=== PATIENT | male | born 1985 | race Asian ===

== ENCOUNTER → 2017-08-16 | Outpatient (CLI) | payer BC ==
[2017-08-16 13:26] LABS: BASOPHILS % 1.5 % (0.0-2.0); EOSINOPHILS % 1.4 % (0.0-5.0); HEMOGLOBIN. 15.6 g/dL (14.0-18.0); LYMPHOCYTES % 21.9 % (20.0-50.0); MEAN CORPUSCULAR HEMOGLOBIN 20.4 pg (28.0-32.0); MEAN CORPUSCULAR VOLUME 66.9 fL (80.0-94.0); MEAN PLATELET VOLUME 8.7 fl (7.4-10.4); NEUTROPHILS % 70.2 % (40.0-76.0); PLATELET 332 x1000/uL (130-400); RED BLOOD CELL COUNT 7.63 mill/uL (4.7-6.1)
[2017-08-16 13:43] LABS: CHLORIDE 104 mEq/L (98-107)
[2017-08-16 14:16] LABS: VITAMIN B12 SERUM 509 pg/mL (211-911)
[2017-08-16 20:23] LABS: PLATELET ESTIMATE NORMAL
== END | disposition home or self-care (01) ==
LOC: LAB 11:56
DX: Z01.818 Encounter for other preprocedural examination (principal); K21.0 Gastro-esophageal reflux disease with esophagitis
CPT/HCPCS: 36415; 71046; 80053; 82607; 85025; 93005

== ENCOUNTER → 2017-08-18 | Outpatient (CLI) | payer BC ==
[~2017-08-18] MED LIST: BARIUM SULFATE 176 GM SUSP.RECON ONE; EZ-HD SUSPENSION(BARIUM SULFATE 340GM) PO ONE
== END | disposition home or self-care (01) ==
LOC: RAD 09:21
DX: K44.9 Diaphragmatic hernia without obstruction or gangrene (principal); K21.9 Gastro-esophageal reflux disease without esophagitis
CPT/HCPCS: 74246

== ENCOUNTER → 2018-09-19 | Outpatient (CLI) | payer BC ==
[2018-09-19 10:14] LABS: BASOPHILS % 0.7 % (0.0-2.0); EOSINOPHILS % 3.1 % (0.0-5.0); HEMATOCRIT. 47.6 % (42.0-52.0); HEMOGLOBIN. 14.9 g/dL (14.0-18.0); MEAN CORPUSCULAR HEMOGLOBIN 20.8 pg (28.0-32.0); MEAN CORPUSCULAR VOLUME 66.5 fL (80.0-94.0); MEAN PLATELET VOLUME 8.8 fl (7.4-10.4); MONOCYTES % 5.2 % (2.0-8.0); PLATELET 315 x1000/uL (130-400); RED BLOOD CELL COUNT 7.16 mill/uL (4.7-6.1); RED CELL DISTRIBUTION WIDTH 15.5 % (11.6-14.6)
[2018-09-19 10:30] LABS: PARTIAL THROMBOPLASTIN TIME 31.5 sec (23.4-31.0)
[2018-09-19 10:31] LABS: CHLORIDE 106 mEq/L (98-107)
[2018-09-19 10:36] LABS: GAMMA GLUTAMYL TRANSPEPTIDASE 65 IU/L (11-50)
[2018-09-19 10:40] LABS: LDL CHOLESTEROL 51 mg/dL (5-100)
[2018-09-19 10:41] LABS: HDL CHOLESTEROL 50 mg/dL (40-59)
[2018-09-19 10:43] LABS: T4 FREE 1.12 ng/dL (0.76-1.46); TOTAL IRON BINDING CAPACITY 360 ug/dL (250-450)
[2018-09-19 11:52] LABS: FOLIC ACID (FOLATE) SERUM > 20.00 ng/mL (>5.38)
[2018-09-19 12:42] LABS: PLATELET ESTIMATE NORMAL
[2018-09-19 17:11] LABS: FERRITIN 40 ng/mL (22-322)
== END | disposition home or self-care (01) ==
LOC: LAB 09:27
PROVIDERS: ATTEND Surgery
DX: E78.00 Pure hypercholesterolemia, unspecified (principal); R53.81 Other malaise
CPT/HCPCS: 36415; 80061; 82306; 82728; 82746; 82951; 82977; 83036; 83540; 83550; 83970; 84425; 84439; 84443; 84550

== ENCOUNTER → 2019-05-04 | Outpatient (CLI) | payer BC ==
[2019-05-04 09:18] LABS: BASOPHILS % 1.5 % (0.0-2.0); EOSINOPHILS % 1.6 % (0.0-5.0); HEMATOCRIT. 46.9 % (42.0-52.0); HEMOGLOBIN. 14.4 g/dL (14.0-18.0); LYMPHOCYTES % 18.3 % (20.0-50.0); MEAN CORPUSCULAR HEMOGLOBIN 20.4 pg (28.0-32.0); MEAN CORPUSCULAR VOLUME 66.3 fL (80.0-94.0); MEAN PLATELET VOLUME 8.8 fl (7.4-10.4); MONOCYTES % 4.5 % (2.0-8.0); NEUTROPHILS % 74.1 % (40.0-76.0); PLATELET 305 x1000/uL (130-400); RED BLOOD CELL COUNT 7.08 mill/uL (4.7-6.1); RED CELL DISTRIBUTION WIDTH 16.1 % (11.6-14.6)
[2019-05-04 09:25] LABS: PARTIAL THROMBOPLASTIN TIME 32.2 sec (23.4-31.0); PROTHROMBIN TIME 10.2 sec (9.6-11.0)
[2019-05-04 09:27] LABS: CHLORIDE 107 mEq/L (98-107)
[2019-05-04 09:31] LABS: GAMMA GLUTAMYL TRANSPEPTIDASE 74 IU/L (11-50)
[2019-05-04 09:32] LABS: LDL CHOLESTEROL 47 mg/dL (5-100)
[2019-05-04 09:33] LABS: TOTAL IRON BINDING CAPACITY 359 ug/dL (250-450)
[2019-05-04 09:34] LABS: HDL CHOLESTEROL 52 mg/dL (40-59)
[2019-05-04 09:36] LABS: T4 FREE 1.14 ng/dL (0.76-1.46)
[2019-05-04 12:42] LABS: FERRITIN 29 ng/mL (22-322)
[2019-05-04 12:54] LABS: FOLIC ACID (FOLATE) SERUM > 20.00 ng/mL (>5.38)
[2019-05-04 13:11] LABS: PLATELET ESTIMATE NORMAL
[2019-05-08 07:09] LABS: VITAMIN B1 THIAMINE WHOLE BLD 165.2 nmol/L (66.5-200.0)
== END | disposition home or self-care (01) ==
LOC: LAB 08:40
DX: E78.00 Pure hypercholesterolemia, unspecified (principal); I10 Essential (primary) hypertension; K21.9 Gastro-esophageal reflux disease without esophagitis; R53.81 Other malaise
CPT/HCPCS: 36415; 80061; 82306; 82728; 82746; 82977; 83036; 83540; 83550; 83970; 84425; 84439; 84443; 84550

== ENCOUNTER → 2019-07-25 | Outpatient (CLI) | payer BC | END | disposition home or self-care (01) | LOC: LAB 07:45 | PROVIDERS: ATTEND Surgery | DX: I10 Essential (primary) hypertension (principal); E11.9 Type 2 diabetes mellitus without complications; E78.1 Pure hyperglyceridemia; E61.0 Copper deficiency; E61.1 Iron deficiency; E55.9 Vitamin D deficiency, unspecified; K21.9 Gastro-esophageal reflux disease without esophagitis; K91.1 Postgastric surgery syndromes; R53.83 Other fatigue; R53.81 Other malaise | CPT/HCPCS: 82306; 83970 ==

== ENCOUNTER 2019-10-24 06:57 | Emergency (ER) | payer BC ==
[~2019-10-24] VITALS: Ht 175.3 cm; Wt 191.0 kg
[2019-10-24 07:46] LABS: BASOPHILS % 1.2 % (0.0-2.0); EOSINOPHILS % 3.4 % (0.0-5.0); HEMATOCRIT. 49.3 % (42.0-52.0); MEAN CORPUSCULAR HEMOGLOBIN 20.3 pg (28.0-32.0); MEAN CORPUSCULAR VOLUME 66.7 fL (80.0-94.0); MEAN PLATELET VOLUME 8.7 fl (7.4-10.4); MONOCYTES % 5.5 % (2.0-8.0); NEUTROPHILS % 62.9 % (40.0-76.0); PLATELET 302 x1000/uL (130-400); RED BLOOD CELL COUNT 7.39 mill/uL (4.7-6.1); RED CELL DISTRIBUTION WIDTH 15.7 % (11.6-14.6)
[2019-10-24 07:54] LABS: CHLORIDE 105 mEq/L (98-107)
[2019-10-24 08:10] LABS: PLATELET ESTIMATE NORMAL
[2019-10-24 08:17] LABS: BG BASE EXCESS -0.6 mmol/L (-2.0-2.0); BG CARBOXYHEMOGLOBIN 0.9 % (0.5-1.5); BG FRACTION INSPIRED OXYGEN 21; BG METHEMOGLOBIN 0.3 % (0.0-1.5); BG OXYHEMOGLOBIN 95.8 % (94.0-97.0); BG PCO2 39.5 mmHg (35.0-45.0); BG PH 7.401 (7.350-7.450); BG PO2 88.4 mmHg (75.0-100.0); BG SAMPLE SITE RIGHT RADIAL; BG TOTAL HEMOGLOBIN 15.3 g/dL (12.0-18.0); BG VENT MODE ROOM AIR
[2019-10-24 09:08] VITALS: BP 141/67
== END 2019-10-24 09:13 | disposition home or self-care (01) ==
LOC: ER 06:57
DX: B34.9 Viral infection, unspecified (principal); J45.909 Unspecified asthma, uncomplicated; Z20.828 Contact with and (suspected) exposure to other viral communicable diseases; Z98.890 Other specified postprocedural states
CPT/HCPCS: 36415; 36600; 71045; 80053; 82375; 82805; 83880; 84484; 85025; 85379; 87635; 87804; 93005; 99285

== ENCOUNTER → 2020-07-30 | Outpatient (CLI) | payer BC ==
[2020-07-30 10:57] LABS: BASOPHILS % 1.2 % (0.0-2.0); EOSINOPHILS % 2.2 % (0.0-5.0); HEMOGLOBIN. 14.5 g/dL (14.0-18.0); LYMPHOCYTES % 24.6 % (20.0-50.0); MEAN CORPUSCULAR HEMOGLOBIN 20.2 pg (28.0-32.0); MEAN CORPUSCULAR VOLUME 65.4 fL (80.0-94.0); MEAN PLATELET VOLUME 8.7 fl (7.4-10.4); MONOCYTES % 4.1 % (2.0-8.0); NEUTROPHILS % 67.9 % (40.0-76.0); PLATELET 315 x1000/uL (130-400); RED BLOOD CELL COUNT 7.18 mill/uL (4.7-6.1); RED CELL DISTRIBUTION WIDTH 14.9 % (11.6-14.6)
[2020-07-30 11:05] LABS: CHLORIDE 107 mEq/L (98-107)
[2020-07-30 11:08] LABS: PARTIAL THROMBOPLASTIN TIME 30.3 sec (23.4-31.0); PROTHROMBIN TIME 10.2 sec (9.6-11.0)
[2020-07-30 11:13] LABS: LDL CHOLESTEROL 48 mg/dL (5-100)
[2020-07-30 11:14] LABS: GAMMA GLUTAMYL TRANSPEPTIDASE 112 IU/L (11-50); HDL CHOLESTEROL 41 mg/dL (40-59); TOTAL IRON BINDING CAPACITY 358 ug/dL (250-450)
[2020-07-30 11:17] LABS: T4 FREE 1.13 ng/dL (0.76-1.46)
[2020-07-30 11:52] LABS: FOLIC ACID (FOLATE) SERUM >20 ng/mL ng/mL (>5.38)
[2020-07-30 12:11] LABS: FERRITIN 39 ng/mL (22-322)
[2020-07-30 14:08] LABS: PLATELET ESTIMATE NORMAL
== END | disposition home or self-care (01) ==
LOC: LAB 10:11
PROVIDERS: ATTEND Surgery
DX: E78.1 Pure hyperglyceridemia (principal); E78.00 Pure hypercholesterolemia, unspecified; I10 Essential (primary) hypertension; E11.9 Type 2 diabetes mellitus without complications; K21.9 Gastro-esophageal reflux disease without esophagitis; R53.83 Other fatigue; E55.9 Vitamin D deficiency, unspecified
CPT/HCPCS: 36415; 80053; 80061; 82306; 82728; 82746; 82977; 83036; 83540; 83550; 83970; 84425; 84439; 84443; 84550; 85025; 87338

== ENCOUNTER 2021-02-05 04:46 | Inpatient (IN) | payer BC ==
[~2021-02-05] VITALS: Ht 172.7 cm; Wt 210.9 kg
[2021-02-05] MEDS ORDERED: SODIUM CHLORIDE 0.9% 1,000 ML IV ONE (05:15)
[2021-02-05 05:42] LABS: BASOPHILS % 0.6 % (0.0-2.0); EOSINOPHILS % 0.6 % (0.0-5.0); HEMOGLOBIN. 15.1 g/dL (14.0-18.0); LYMPHOCYTES % 13.4 % (20.0-50.0); MEAN CORPUSCULAR HEMOGLOBIN 21.1 pg (28.0-32.0); MEAN CORPUSCULAR VOLUME 65.7 fL (80.0-94.0); MEAN PLATELET VOLUME 9.1 fl (7.4-10.4); MONOCYTES % 5.6 % (2.0-8.0); NEUTROPHILS % 79.8 % (40.0-76.0); PLATELET 232 x1000/uL (130-400); RED BLOOD CELL COUNT 7.16 mill/uL (4.7-6.1); RED CELL DISTRIBUTION WIDTH 14.7 % (11.6-14.6)
[2021-02-05 05:42] LABS: BG BASE EXCESS -2.7 mmol/L (-2.0-2.0); BG CARBOXYHEMOGLOBIN 0.7 % (0.5-1.5); BG DEOXYHEMOGLOBIN 4.6 % (0.0-5.0); BG FRACTION INSPIRED OXYGEN 21; BG HCO3 ACT 21.4 mmol/L (22.0-26.0); BG METHEMOGLOBIN 0.3 % (0.0-1.5); BG OXYGEN SATURATION 95.4 % (92.0-98.5); BG OXYHEMOGLOBIN 94.4 % (94.0-97.0); BG PCO2 35.5 mmHg (35.0-45.0); BG PH 7.399 (7.350-7.450); BG PO2 72.5 mmHg (75.0-100.0); BG SAMPLE SITE RIGHT RADIAL; BG TOTAL HEMOGLOBIN 15.4 g/dL (12.0-18.0); BG VENT MODE ROOM AIR
[2021-02-05 05:44] LABS: PLATELET ESTIMATE NORMAL
[2021-02-05 05:48] LABS: CHLORIDE 103 mEq/L (98-107)
[2021-02-05 05:54] LABS: C REACTIVE PROTEIN QUANT 8.4 mg/L (0.0-3.0)
[2021-02-05 05:57] LABS: CREATINE KINASE 242 IU/L (39-308)
[2021-02-05 05:58] LABS: D-DIMER 0.65 mg/L FEU (<0.50); PROTHROMBIN TIME 10.4 sec (9.6-11.0)
[2021-02-05] MEDS ORDERED: DEXAMETHASONE 4MG/ML 1ML VIAL IV ONE (08:00)
[2021-02-05] MEDS ORDERED: MVI, ADULT NO.1 10 ML, FOLIC ACID 1 MG, THIAMINE HCL 100 MG in SODIUM CHLORIDE 0.9% 1,0... IV NR (18:15)
[2021-02-05] MEDS ORDERED: ACETAMINOPHEN 325MG TABLET PO PRN ×2 (18:15)
[2021-02-05] MEDS ORDERED: ONDANSETRON HCL 4MG/2ML INJ IV PRN (18:15)
[2021-02-05] MEDS ORDERED: ALBUTEROL 6.7GM HFA INHALER ORI PRN (18:15)
[2021-02-05] MEDS ORDERED: DIPHENHYDRAMINE 50MG/ML VIAL IV PRN (18:15)
[2021-02-05] MEDS: LOPERAMIDE HCL 2MG CAPSULE PO PRN (19:12)
[2021-02-05] MEDS: ENOXAPARIN 40MG/0.4ML SYR SUBCUT SCH (19:12)
[2021-02-05] MEDS ORDERED: PHENOL/SODIUM PHENOLATE 1.4% SRPAY 177ML MM NR (19:30)
[2021-02-05] MEDS ORDERED: PHENOL/SODIUM PHENOLATE 1.4% SRPAY 177ML MM PRN (19:45)
[2021-02-05] MEDS: ALBUTEROL 6.7GM HFA INHALER ORI SCH (20:14)
[2021-02-05] MEDS: GABAPENTIN 300MG CAPSULE PO SCH (21:07)
[2021-02-05] MEDS: OMEPRAZOLE 20MG CAPSULE EXTENDED RELEASE PO SCH (21:08)
[2021-02-05] MEDS: SODIUM CHLORIDE 0.9% INJ 3ML FLUSH IVF SCH (22:03)
[2021-02-06] MEDS: ALBUTEROL 6.7GM HFA INHALER ORI SCH ×4 (02:19→23:07)
[2021-02-06] MEDS: HYDROCODONE/ACETAMINOPHEN 5/325MG TABLET PO PRN ×2 (02:35→09:46)
[2021-02-06] MEDS: SODIUM CHLORIDE 0.9% INJ 3ML FLUSH IVF SCH ×3 (06:13→21:53)
[2021-02-06] MEDS: OMEPRAZOLE 20MG CAPSULE EXTENDED RELEASE PO SCH (06:50)
[2021-02-06] MEDS ORDERED: ERGOCALCIFEROL 50000UNITS CAPSULE PO SCH (09:00)
[2021-02-06] MEDS: ENOXAPARIN 40MG/0.4ML SYR SUBCUT SCH ×2 (09:49→21:52)
[2021-02-06] MEDS: ALLOPURINOL 100 MG TABLET PO SCH (09:58)
[2021-02-06] MEDS: MULTIVITAMINS,THER W-MINERALS TABLET PO SCH (09:58)
[2021-02-06] MEDS ORDERED: NALOXONE HCL 0.4MG/ML VIAL IV PRN (13:45)
[2021-02-06 15:13] VITALS: BP_SYST 127; BP_SYST 165; BP_DIAS 67
[2021-02-06] MEDS ORDERED: MULT-1146 PO (16:04)
[2021-02-06] MEDS ORDERED: CHOL100053 PO (16:04)
[2021-02-06] MEDS ORDERED: GABA-532 PO (16:04)
[2021-02-06] MEDS ORDERED: ALBU6.7H15 INH (16:04)
[2021-02-06] MEDS ORDERED: ALLO100T PO (16:04)
[2021-02-06 16:16] VITALS: BP 147/70
[2021-02-06] MEDS ORDERED: BENZONATATE 100MG CAPSULE PO PRN (18:15)
[2021-02-06 20:00] VITALS: BP 171/77
[2021-02-06] MEDS ORDERED: POTASSIUM CHLORIDE 20MEQ TABLET SR PO NR (21:30)
[2021-02-06] MEDS: FAMOTIDINE 20MG TABLET PO SCH (21:52)
[2021-02-06] MEDS: GABAPENTIN 300MG CAPSULE PO SCH (21:52)
[2021-02-06] MEDS: FLUTICASONE PROPIONATE 50MCG/SPRAY BOTTLE BOTHNSTRLS SCH (21:53)
[2021-02-06] MEDS: PROMETHAZINE/DEXTROMETHORPHAN 6.25-15MG/5ML BOTTLE 120ML PO PRN (21:53)
[2021-02-06 22:00] VITALS: BP 118/51
[2021-02-07] MEDS: ZOLPIDEM TARTRATE 5MG TABLET PO PRN ×2 (00:06→21:58)
[2021-02-07] MEDS: ALBUTEROL 6.7GM HFA INHALER ORI SCH ×4 (02:00→21:36)
[2021-02-07 04:00] VITALS: BP 138/89
[2021-02-07] MEDS: SODIUM CHLORIDE 0.9% INJ 3ML FLUSH IVF SCH ×3 (05:43→21:58)
[2021-02-07 07:13] LABS: BASOPHILS % 0.7 % (0.0-2.0); HEMATOCRIT. 43.6 % (42.0-52.0); HEMOGLOBIN. 13.5 g/dL (14.0-18.0); LYMPHOCYTES % 26.8 % (20.0-50.0); MEAN CORPUSCULAR HEMOGLOBIN 20.7 pg (28.0-32.0); MEAN CORPUSCULAR VOLUME 66.9 fL (80.0-94.0); MEAN PLATELET VOLUME 8.9 fl (7.4-10.4); MONOCYTES % 8.7 % (2.0-8.0); NEUTROPHILS % 62.8 % (40.0-76.0); PLATELET 251 x1000/uL (130-400); RED BLOOD CELL COUNT 6.52 mill/uL (4.7-6.1); RED CELL DISTRIBUTION WIDTH 14.7 % (11.6-14.6)
[2021-02-07 07:26] LABS: CHLORIDE 104 mEq/L (98-107)
[2021-02-07 08:00] VITALS: BP 130/72
[2021-02-07] MEDS: MULTIVITAMINS,THER W-MINERALS TABLET PO SCH (08:27)
[2021-02-07] MEDS: ENOXAPARIN 40MG/0.4ML SYR SUBCUT SCH ×2 (08:27→21:35)
[2021-02-07] MEDS: FLUTICASONE PROPIONATE 50MCG/SPRAY BOTTLE BOTHNSTRLS SCH ×2 (08:27→21:36)
[2021-02-07] MEDS: FAMOTIDINE 20MG TABLET PO SCH ×2 (08:27→21:35)
[2021-02-07] MEDS: ALLOPURINOL 100 MG TABLET PO SCH (08:27)
[2021-02-07] MEDS: PROMETHAZINE/DEXTROMETHORPHAN 6.25-15MG/5ML BOTTLE 120ML PO PRN ×2 (11:40→17:42)
[2021-02-07 12:00] VITALS: BP 122/59
[2021-02-07] MEDS: DEXAMETHASONE 6MG TABLET PO SCH (13:52)
[2021-02-07] MEDS ORDERED: POTASSIUM CHLORIDE 20MEQ TABLET SR PO NR (15:30)
[2021-02-07 16:00] VITALS: BP 99/51
[2021-02-07 20:00] VITALS: BP 138/69
[2021-02-07] MEDS: GABAPENTIN 300MG CAPSULE PO SCH (21:35)
[2021-02-07] MEDS: LOPERAMIDE HCL 2MG CAPSULE PO PRN (21:40)
[2021-02-08] VITALS: BP 131/74
[2021-02-08] MEDS: ALBUTEROL 6.7GM HFA INHALER ORI SCH ×4 (02:00→22:04)
[2021-02-08 04:00] VITALS: BP 127/55
[2021-02-08] MEDS: SODIUM CHLORIDE 0.9% INJ 3ML FLUSH IVF SCH ×3 (06:00→22:04)
[2021-02-08 08:00] VITALS: BP 134/71
[2021-02-08] MEDS: FAMOTIDINE 20MG TABLET PO SCH ×2 (08:39→22:03)
[2021-02-08] MEDS: DEXAMETHASONE 6MG TABLET PO SCH (08:39)
[2021-02-08] MEDS: MULTIVITAMINS,THER W-MINERALS TABLET PO SCH (08:39)
[2021-02-08] MEDS: ALLOPURINOL 100 MG TABLET PO SCH (08:39)
[2021-02-08] MEDS: ENOXAPARIN 40MG/0.4ML SYR SUBCUT SCH ×2 (08:40→22:04)
[2021-02-08] MEDS: FLUTICASONE PROPIONATE 50MCG/SPRAY BOTTLE BOTHNSTRLS SCH ×2 (08:40→22:04)
[2021-02-08] MEDS: PROMETHAZINE/DEXTROMETHORPHAN 6.25-15MG/5ML BOTTLE 120ML PO PRN ×2 (08:41→15:14)
[2021-02-08 12:00] VITALS: BP 135/70
[2021-02-08 16:00] VITALS: BP 141/76
[2021-02-08] MEDS ORDERED: DEX6 MT (19:40)
[2021-02-08 20:00] VITALS: BP 129/66
[2021-02-08 21:00] LABS: BASOPHILS % 0.3 % (0.0-2.0); HEMATOCRIT. 43.8 % (42.0-52.0); LYMPHOCYTES % 12.5 % (20.0-50.0); MEAN CORPUSCULAR HEMOGLOBIN 20.9 pg (28.0-32.0); MEAN CORPUSCULAR VOLUME 65.4 fL (80.0-94.0); MEAN PLATELET VOLUME 9.5 fl (7.4-10.4); MONOCYTES % 5.6 % (2.0-8.0); NEUTROPHILS % 81.6 % (40.0-76.0); PLATELET 322 x1000/uL (130-400)
[2021-02-08 21:05] LABS: CHLORIDE 106 mEq/L (98-107)
[2021-02-08] MEDS ORDERED: AZIT500T3 MT (21:58)
[2021-02-08] MEDS: ZOLPIDEM TARTRATE 5MG TABLET PO PRN (22:03)
[2021-02-08] MEDS: LOPERAMIDE HCL 2MG CAPSULE PO PRN (22:03)
[2021-02-08] MEDS: GABAPENTIN 300MG CAPSULE PO SCH (22:03)
[2021-02-09] VITALS: BP 135/61
[2021-02-09] MEDS: ALBUTEROL 6.7GM HFA INHALER ORI SCH ×2 (02:00→08:38)
[2021-02-09 04:00] VITALS: BP 124/55
[2021-02-09] MEDS: SODIUM CHLORIDE 0.9% INJ 3ML FLUSH IVF SCH (05:51)
[2021-02-09 08:00] VITALS: BP 138/81
[2021-02-09 08:22] VITALS: BP 138/81
[2021-02-09] MEDS: FAMOTIDINE 20MG TABLET PO SCH (08:37)
[2021-02-09] MEDS: ALLOPURINOL 100 MG TABLET PO SCH (08:37)
[2021-02-09] MEDS: DEXAMETHASONE 6MG TABLET PO SCH (08:37)
[2021-02-09] MEDS: ENOXAPARIN 40MG/0.4ML SYR SUBCUT SCH (08:37)
[2021-02-09] MEDS: MULTIVITAMINS,THER W-MINERALS TABLET PO SCH (08:37)
[2021-02-09] MEDS: FLUTICASONE PROPIONATE 50MCG/SPRAY BOTTLE BOTHNSTRLS SCH (08:37)
== END 2021-02-09 09:30 | disposition home or self-care (01) | DRG 871 ==
LOC: ER 04:46 → MICUSO 07:46 → EDBEDREQ 07:58 → EDBEDREQSVC 07:58 → EDBEDREQTM 07:58 → 7WST 02-06 13:25
PROVIDERS: ADMIT Internal Medicine; ATTEND Internal Medicine
PROC: 5A09357 Assistance with Respiratory Ventilation, Less than 24 Consecutive Hours, Continuous Positive Airway Pressure (ICD-10-PCS; 2021-02-05)
PROC: 5A09457 Assistance with Respiratory Ventilation, 24-96 Consecutive Hours, Continuous Positive Airway Pressure (ICD-10-PCS; principal; 2021-02-06)
DX: A41.89 Other specified sepsis (principal); U07.1 COVID-19; J96.01 Acute respiratory failure with hypoxia; J12.82 Pneumonia due to coronavirus disease 2019; Z68.45 Body mass index [BMI] 70 or greater, adult; E66.01 Morbid (severe) obesity due to excess calories; J45.909 Unspecified asthma, uncomplicated; M10.9 Gout, unspecified; E86.0 Dehydration; J20.8 Acute bronchitis due to other specified organisms; G89.29 Other chronic pain; M48.061 Spinal stenosis, lumbar region without neurogenic claudication; Z79.899 Other long term (current) drug therapy; Z82.49 Family history of ischemic heart disease and other diseases of the circulatory system; Z83.3 Family history of diabetes mellitus; G47.30 Sleep apnea, unspecified
CPT/HCPCS: 36415; 36600; 71045; 80048; 80053; 82375; 82550; 82728; 82805; 83605; 83615; 84145; 84484; 85025; 85379; 85384; 86140; 87426; 93005; 94640; 94660; 99291; J1100; J1650; J3411; J3490; J7030; U0003; U0005

== ENCOUNTER → 2021-07-31 | Outpatient (CLI) | payer OTHER ==
[~2021-07-31] MED LIST changes: +ALBU6.7H15 INH; +ALLO100T PO; +AZIT500T3 MT; -BARIUM SULFATE 176 GM SUSP.RECON ONE; +CHOL100053 PO; +DEX6 MT; -EZ-HD SUSPENSION(BARIUM SULFATE 340GM) PO ONE; +GABA-532 PO; +MULT-1146 PO
[2021-07-31 07:54] LABS: BASOPHILS % 0.7 % (0.0-2.0); EOSINOPHILS % 2.7 % (0.0-5.0); HEMATOCRIT. 44.6 % (42.0-52.0); MEAN CORPUSCULAR HEMOGLOBIN 20.6 pg (28.0-32.0); MEAN CORPUSCULAR VOLUME 65.7 fL (80.0-94.0); MEAN PLATELET VOLUME 8.1 fl (7.4-10.4); MONOCYTES % 5.4 % (2.0-8.0); NEUTROPHILS % 66.2 % (40.0-76.0); PLATELET 279 x1000/uL (130-400); RED BLOOD CELL COUNT 6.79 mill/uL (4.7-6.1); RED CELL DISTRIBUTION WIDTH 15.4 % (11.6-14.6)
[2021-07-31 08:10] LABS: CHLORIDE 110 mEq/L (98-107)
[2021-07-31 10:00] LABS: PLATELET ESTIMATE NORMAL
== END | disposition home or self-care (01) ==
LOC: LAB 07:32
DX: M54.9 Dorsalgia, unspecified (principal)
CPT/HCPCS: 36415; 80053; 85025

== ENCOUNTER → 2021-09-15 | Outpatient (CLI) | payer OTHER | END | disposition home or self-care (01) | LOC: RAD 15:27 | DX: M54.16 Radiculopathy, lumbar region (principal) | CPT/HCPCS: 72114 ==

== ENCOUNTER → 2022-05-27 | Outpatient (CLI) | payer BC ==
[2022-05-27 12:46] LABS: BASOPHILS % 0.7 % (0.0-2.0); EOSINOPHILS % 1.2 % (0.0-5.0); HEMATOCRIT. 46.4 % (42.0-52.0); HEMOGLOBIN. 14.4 g/dL (14.0-18.0); LYMPHOCYTES % 19.9 % (20.0-50.0); MEAN CORPUSCULAR HEMOGLOBIN 20.9 pg (28.0-32.0); MEAN CORPUSCULAR VOLUME 67.1 fL (80.0-94.0); MEAN PLATELET VOLUME 8.9 fl (7.4-10.4); NEUTROPHILS % 73.2 % (40.0-76.0); PLATELET 294 x1000/uL (130-400); RED BLOOD CELL COUNT 6.91 mill/uL (4.7-6.1)
[2022-05-27 17:58] LABS: CHLORIDE 102 mEq/L (98-107)
[2022-05-27 18:06] LABS: HDL CHOLESTEROL 46 mg/dL (40-59); LDL CHOLESTEROL 47 mg/dL (5-100)
[2022-05-27 23:06] LABS: PLATELET ESTIMATE NORMAL
== END | disposition home or self-care (01) ==
LOC: LAB 11:50
PROVIDERS: ATTEND Internal Medicine
DX: Z00.00 Encounter for general adult medical examination without abnormal findings (principal)
CPT/HCPCS: 36415; 80053; 80061; 84550; 85025; 86038; 86430

== ENCOUNTER → 2023-03-05 | Outpatient (CLI) | payer BC ==
[2023-03-05 11:57] LABS: BASOPHILS % 1.2 % (0.0-2.0); EOSINOPHILS % 1.9 % (0.0-5.0); HEMATOCRIT. 49.3 % (42.0-52.0); HEMOGLOBIN. 15.2 g/dL (14.0-18.0); LYMPHOCYTES % 20.3 % (20.0-50.0); MEAN CORPUSCULAR HEMOGLOBIN 21.5 pg (28.0-32.0); MEAN CORPUSCULAR HGB CONC 30.9 g/dL (31.0-37.0); MEAN CORPUSCULAR VOLUME 69.7 fL (80.0-94.0); MEAN PLATELET VOLUME 8.8 fl (7.4-10.4); MONOCYTES % 5.8 % (2.0-8.0); NEUTROPHILS % 70.8 % (40.0-76.0); PLATELET 311 x1000/uL (130-400); RED BLOOD CELL COUNT 7.07 mill/uL (4.7-6.1); RED CELL DISTRIBUTION WIDTH 15.8 % (11.6-14.6); WHITE BLOOD COUNT 9.6 x1000/uL (4.5-11.0)
[2023-03-05 11:59] LABS: DIFFERENTIAL COMMENT 1
[2023-03-05 12:00] LABS: ADD RBC MORPHOLOGY YES; CHLORIDE 107 mEq/L (98-107); INDEX HEMOLYSI 1 (1-3); INDEX ICTERIC 1 (1-4); INDEX LIPEMIC 1 (1-3); POTASSIUM 4.1 mEq/L (3.5-5.1); SODIUM 139 mEq/L (136-145)
[2023-03-05 12:16] LABS: ALANINE AMINOTRANSFERASE 74 IU/L (13-61); ALBUMIN 3.8 g/dL (3.4-5.0); ASPARTATE AMINOTRANSFERASE 38 IU/L (15-37); CALCIUM 8.8 mg/dL (8.5-10.1); CARBON DIOXIDE 27 mEq/L (21-32); CHOLESTEROL 140 mg/dL (<200); CREATININE 0.8 mg/dL (0.6-1.3); GLUCOSE 92 mg/dL (70-105); HDL CHOLESTEROL 56 mg/dL (40-59); LDL CHOLESTEROL 66 mg/dL (5-100); TRIGLYCERIDE 128 mg/dL (0-150); UREA NITROGEN BLOOD 10 mg/dL (7-21)
[2023-03-05 12:58] LABS: MICROCYTOSIS 4+
[2023-03-05 12:59] LABS: PLATELET ESTIMATE NORMAL
== END | disposition home or self-care (01) ==
LOC: LAB 11:22
PROVIDERS: ATTEND Internal Medicine
DX: G47.30 Sleep apnea, unspecified (principal); E66.01 Morbid (severe) obesity due to excess calories; R10.30 Lower abdominal pain, unspecified; M08.9A Juvenile arthritis, unspecified, other specified site
CPT/HCPCS: 36415; 80053; 80061; 83036; 84443; 85025

== ENCOUNTER → 2023-10-20 | Outpatient (CLI) | payer BC ==
[~2023-10-20] MED LIST changes: +AZIT500T MT; -AZIT500T3 MT
[2023-10-20 11:42] LABS: BASOPHILS % 1.7 % (0.0-2.0); DIFFERENTIAL COMMENT 0; EOSINOPHILS % 2.4 % (0.0-5.0); HEMATOCRIT. 46.3 % (42.0-52.0); HEMOGLOBIN. 14.2 g/dL (14.0-18.0); LYMPHOCYTES % 19.7 % (20.0-50.0); MEAN CORPUSCULAR HEMOGLOBIN 21.5 pg (28.0-32.0); MEAN CORPUSCULAR HGB CONC 30.6 g/dL (31.0-37.0); MEAN CORPUSCULAR VOLUME 70.1 fL (80.0-94.0); MEAN PLATELET VOLUME 8.8 fl (7.4-10.4); MONOCYTES % 5.4 % (2.0-8.0); NEUTROPHILS % 70.8 % (40.0-76.0); PLATELET 291 x1000/uL (130-400); RED CELL DISTRIBUTION WIDTH 15.9 % (11.6-14.6); WHITE BLOOD COUNT 9.1 x1000/uL (4.5-11.0)
[2023-10-20 11:50] LABS: CARBON DIOXIDE 27 mEq/L (21-32); CHLORIDE 106 mEq/L (98-107); POTASSIUM 3.8 mEq/L (3.5-5.1); SODIUM 138 mEq/L (136-145)
[2023-10-20 11:51] LABS: CALCIUM 9.1 mg/dL (8.7-10.4)
[2023-10-20 11:55] LABS: CREATININE 0.8 mg/dL (0.6-1.3); GLUCOSE 111 mg/dL (70-105); TRIGLYCERIDE 132 mg/dL (0-150); URIC ACID 5.1 mg/dL (3.7-9.2)
[2023-10-20 11:56] LABS: LDL CHOLESTEROL 64 mg/dL (5-100); UREA NITROGEN BLOOD 7 mg/dL (9-23)
[2023-10-20 11:57] LABS: ALANINE AMINOTRANSFERASE 67 IU/L (10-49); ALBUMIN 4.6 g/dL (3.2-4.8); ASPARTATE AMINOTRANSFERASE 41 IU/L (<34); CHOLESTEROL 133 mg/dL (<200)
[2023-10-20 11:58] LABS: BILIRUBIN TOTAL 0.9 mg/dL (0.1-1.0); HDL CHOLESTEROL 43 mg/dL (>55); PROTEIN TOTAL 7.2 g/dL (6.0-8.3)
== END | disposition home or self-care (01) ==
LOC: LAB 11:01
PROVIDERS: ATTEND Internal Medicine
DX: M10.9 Gout, unspecified (principal)
CPT/HCPCS: 36415; 80053; 80061; 83036; 84550; 85025